=== PATIENT | female | born 1960 | race Hispanic/Latino ===

== ENCOUNTER 2018-01-08 19:08 | Emergency (ER) | payer BC ==
[2018-01-08 19:11] VITALS: TEMP 98.1
--- NOTE | 2018-01-08 19:47 | ED PDOC ---
HPI: Head Injury Time Seen by Provider: 01/08/18 19:30 Chief Complaint (Nursing): Abnormal Skin Integrity Chief Complaint (Provider): Head Laceration History Per: Patient History/Exam Limitations: no limitations, intoxication Onset/Duration Of Symptoms: Hrs (two) Severity: Mild Loss Of Consciousness: No Additional Complaint(s): Pt brought by EMS to the ED after she tripped and fell after a day of consumming alcoholic beverages and struck her head on the floor. Pt adamently denies any other injuries, including injuries to her hands, wrists or arms and shoulders, pt also denies LOC, syncope, presyncope, dizziness, nausea, vomiting or palpitations. Pt has a 4cm vertical laceration on the left frontal scalp just below the hairline; bleeding is under control and the pt is hemodynamically stable. Pt is present with her Past Medical History Reviewed: Historical Data, Nursing Documentation, Vital Signs Vital Signs: Last Vital Signs Temp 98.1 F 01/08/18 19:09 Pulse 63 01/08/18 19:19 Resp 16 01/08/18 19:19 BP 115/60 01/08/18 19:19 Pulse Ox 97 01/08/18 19:19 - Medical History PMH: Anxiety, Asthma, Diverticulitis, Fractures, HTN (Denies HTN, takes Lisinopril for neuro disorder, per pt), TIA Denies: HIV, Chronic Kidney Disease - Family History Family History: States: Unknown Family Hx - Home Medications Home Medications: Ambulatory Orders Medication Instructions Recorded ALPRAZolam [Xanax] 1 mg PO TID PRN 09/30/16 Aspirin [Adult Low Dose Aspirin EC] 1 tab PO DAILY 09/30/16 Atorvastatin [Lipitor] 20 mg PO DAILY 09/30/16 Lisinopril [Zestril] 10 mg PO DAILY 09/30/16 Ciprofloxacin HCl [Cipro] 500 mg PO Q12 #18 tablet 10/05/16 Metronidazole [Flagyl] 500 mg PO Q8 #27 tablet 10/05/16 Polyethylene Glycol 3350 [Miralax] 17 gm PO DAILY #30 packet 10/05/16 oxyCODONE/Acetaminophen [Percocet 1 tab PO Q6 PRN #14 tab 10/05/16 5/325 mg Tab] Cephalexin [cephalexin] 500 mg PO QID #40 cap 01/08/18 - Allergies Allergies/Adverse Reactions: Allergies Allergy/AdvReac Type Severity Reaction Status Date / Time No Known Allergies Allergy Verified 06/10/16 20:07 Review of Systems ROS Statement: Except As Marked, All Systems Reviewed And Found Negative Skin: Positive for: Other (see HPI, laceration) Physical Exam - Reviewed Nursing Documentation Reviewed: Yes Vital Signs Reviewed: Yes - Physical Exam Appears: Positive for: Well, Uncomfortable Head Exam: Positive for: NORMAL INSPECTION, NORMOCEPHALIC. Negative for: ATRAUMATIC Skin: Positive for: Normal Color, Warm, Dry (Verticle 4cm laceration over left eye) Eye Exam: Positive for: Normal appearance. Negative for: Periorbital swelling, Periorbital tenderness, Conjunctival injection Neck: Positive for: Normal, Painless ROM, Supple. Negative for: Decreased ROM Cardiovascular/Chest: Positive for: Regular Rate, Rhythm Respiratory: Positive for: Normal Breath Sounds Pulses-Carotid (L): 2+ Pulses-Carotid (R): 2+ Pulses-Radial (L): 2+ Pulses-Radial (R): 2+ - ECG O2 Sat by Pulse Oximetry: 97 Procedures - Time-Out Correct Patient (with visual ID + MR# on ID Band): Yes Correct Procedure: Yes Correct Site Marked: Yes X-Ray Marked: Yes - Laceration/Wound Repair Right Head Wound Length (cm): 4 Wound's Depth, Shape: superficial, linear, contused tissue Wound Explored: no foreign body removed Irrigated w/ Saline (ccs): 500 Betadine Prep?: No Anesthesia: 1% Lidocaine Volume Anesthetic (ccs): 4 Wound Repaired With: Sutures Suture Size/Type: 4:0 Number of Sutures: 3 Layer Closure?: Yes Deep Layer Suture Size/Type: 5:0, chromic Number Deep Layer Sutures: 8 Wound Complexity: Intermediate Sterile Dressing Applied?: Yes Disposition - Clinical Impression Clinical Impression: Laceration - Patient ED Disposition Is Patient to be Admitted: No Doctor Will See Patient In The: Office Counseled Patient/Family Regarding: Studies Performed, Diagnosis, Need For Followup, Rx Given - Disposition Disposition: Routine/Home Disposition Time: 21:33 Condition: STABLE Additional Instructions: external sutures - 3 - to be removed in 7 days Prescriptions: Cephalexin [cephalexin] 500 mg PO QID #40 cap Instructions: Laceration Repair, Stitches Removal, Wound Care (DC), Wound Care Forms: [facility] (Macedonian)
[2018-01-08] MEDS ORDERED: Tdap Vaccine 0.5 ml Vial (10-64 yrs) IM ONE (21:02)
[2018-01-08] MEDS ORDERED: Lidocaine 1% 20 MG/2 ML PF AMP ONE ×2 (21:02→21:07)
[2018-01-08] MEDS ORDERED: Lidocaine 1% Inj (20ml) IJ ONE (21:29)
[2018-01-08 21:36] VITALS: BP 120/59; PULSE 67; RESP 20
[2018-01-08 21:41] VITALS: O2SAT 97
--- NOTE | 2018-01-08 21:46 | CT ---
EXAM: CT Head Without Intravenous Contrast EXAM DATE/TIME: 01/08/2018 7:39 PM CLINICAL HISTORY: 57 years old, female; Injury or trauma; Fall; Initial encounter; Abrasion; Forehead; Additional info: Fall ETOH TECHNIQUE: Axial computed tomography images of the head/brain without intravenous contrast. All CT scans at this facility use one or more dose reduction techniques, viz.: automated exposure control; ma/kV adjustment per patient size (including targeted exams where dose is matched to indication; i.e. head); or iterative reconstruction technique. Coronal and sagittal reformatted images were created and reviewed. COMPARISON: No relevant prior studies available. FINDINGS: BRAIN: No significant acute abnormality identified. No acute hemorrhage seen within the brain. No acute extra-axial fluid collections visualized. No evidence of significant mass effect within the brain. VENTRICLES: No evidence of significant hydrocephalus. BONES/JOINTS: No acute fractures or other acute bony abnormality noted. SOFT TISSUES: Soft tissue swelling in the left frontal scalp. Focus of air also seen in the scalp in this area, presumably related to an underlying soft tissue laceration. SINUSES: Visualized paranasal sinuses appear clear. MASTOID AIR CELLS: Mastoid air cells appear clear. IMPRESSION: - No evidence of acute intracranial injury or fractures. - See above for remaining findings.
== END 2018-01-08 21:45 | disposition left against medical advice (07) ==
LOC: H.ER 19:08
DX: S01.81XA Laceration without foreign body of other part of head, initial encounter (principal); W01.198A Fall on same level from slipping, tripping and stumbling with subsequent striking against other object, initial encounter; I10 Essential (primary) hypertension; J45.909 Unspecified asthma, uncomplicated; Z79.82 Long term (current) use of aspirin; Z23 Encounter for immunization